=== PATIENT | female | born 1950 | race Caucasian/White ===

== ENCOUNTER 2021-02-23 09:25 | Emergency (ER) | payer MEDICARE | END 2021-02-23 10:19 | disposition home or self-care (01) | LOC: BURERS 09:25 | DX: T63.421A Toxic effect of venom of ants, accidental (unintentional), initial encounter (principal); K21.9 Gastro-esophageal reflux disease without esophagitis; G40.909 Epilepsy, unspecified, not intractable, without status epilepticus; I10 Essential (primary) hypertension | CPT/HCPCS: 99282 ==